=== PATIENT | female | born 1980 | race Caucasian/White ===

== ENCOUNTER → 2016-05-08 | Outpatient (CLI) | payer BC ==
--- NOTE | 2016-05-08 19:03 | US ---
EXAMINATION TYPE: US thyroid st tissue head/neck DATE OF EXAM: 05/08/2016 6:12 PM COMPARISON: 05/02/2015 CLINICAL HISTORY: R53.83 Other Malaise And Fatigue. Difficulty swallowing, known Santi's GLAND SIZE: Right Lobe: 5.1 x 1.9 x 1.2 cm Overall Parenchyma: heterogenous Left Lobe: 5.5 x 1.3 x 1.5 cm Overall Parenchyma: heterogeneous Isthmus Thickness: 0.4 cm NODULES RIGHT: # of nodules measured on right: 0 LEFT: # of nodules measured on left: 0 ISTHMUS: # of nodules measured in the isthmus: 0 TECHNOLOGIST IMPRESSION: Bilateral neck scanned, no abnormal lymphadenopathy noted. IMPRESSION: Normal thyroid sonogram. No discrete mass seen. No adverse change compared to old exam.
== END | disposition home or self-care (01) ==
LOC: RADUSMAIN 17:53
PROVIDERS: ATTEND Obstetrics & Gynecology
DX: E06.3 Autoimmune thyroiditis (principal); E13.10 Other specified diabetes mellitus with ketoacidosis without coma; R53.83 Other fatigue
CPT/HCPCS: 76536

== ENCOUNTER → 2016-06-11 | Outpatient (CLI) | payer BC | END | disposition home or self-care (01) | LOC: LABWHC1 08:06 | PROVIDERS: ATTEND Clinical Nurse Specialist Women's Health | DX: E06.3 Autoimmune thyroiditis (principal); E03.9 Hypothyroidism, unspecified | CPT/HCPCS: 36415; 84439; 84443; 84481; 86376 ==

== ENCOUNTER → 2016-07-17 | Outpatient (CLI) | payer BC | END | disposition home or self-care (01) | LOC: LABWHC1 08:08 | PROVIDERS: ATTEND Obstetrics & Gynecology | DX: E03.9 Hypothyroidism, unspecified (principal); E06.3 Autoimmune thyroiditis | CPT/HCPCS: 36415; 84439; 84481 ==

== ENCOUNTER 2016-11-25 12:24 | Inpatient (IN) | payer BC ==
[2016-11-28 07:11] VITALS: BMI 31.7
[2016-11-28] MEDS ORDERED: OXYTOCIN 10 UNIT/ML 1 ML VIAL IM PRN (07:16)
[2016-11-28] MEDS ORDERED: METHYLERGONOVINE 0.2 MG/ML 1 ML AMP IM PRN (07:16)
[2016-11-28] MEDS ORDERED: LIDOCAINE 1% (PF) 10 MG/ML (30 ML SDV) SQ PRN (07:16)
[2016-11-28] MEDS ORDERED: PENICILLIN G POTASSIUM (BULK) 5,000,000 UNIT in DEXTROSE 5% IN WATER 100 ML IV STA ×2 (07:16)
[2016-11-28] MEDS ORDERED: TERBUTALINE 1 MG/ML VIAL SQ PRN (07:16)
[2016-11-28] MEDS ORDERED: CARBOPROST TROMETHAMINE 250 MCG/ML 1 ML AMP IM PRN (07:16)
[2016-11-28 07:24] LABS: Basophils % (A) 0 %; CHCM 33.4; Eosinophils # (A) 0.1 k/uL (0-0.7); Eosinophils % (A) 1 %; HCT 40.8 % (34.0-46.0); HDW 2.95; HGB 13.9 gm/dL (11.4-16.0); Luc # (Auto) 0.19; Luc % (Auto) 2; Lymphocytes % (A) 21 %; MCH 30.8 pg (25.0-35.0); MCHC 34.2 g/dL (31.0-37.0); MCV 90.3 fL (80.0-100.0); Mean Platelet Volume 9.2; Monocytes # (A) 0.5 k/uL (0-1.0); Monocytes % (A) 5 %; Neutrophils # (A) 6.7 k/uL (1.3-7.7); Neutrophils % (A) 71 %; RBC 4.52 m/uL (3.80-5.40); RDW 14.2 % (11.5-15.5); WBC 9.5 k/uL (3.8-10.6); WBC (Perox) 9.38
[2016-11-28] MEDS: LACTATED RINGERS 1,000 ML IV SCH ×3 (07:25→13:12)
[2016-11-28] MEDS ORDERED: OXYTOCIN 20 UNITS/1000 ML NS 1,000 ML IV SCH ×2 (07:30→14:30)
[2016-11-28] MEDS ORDERED: BUTORPHANOL 1 MG/ML 1 ML VIAL IV PRN (08:28)
--- NOTE | 2016-11-28 08:34 | P.HPOB ---
History of Present Illness H&P Date: 11/28/16 Chief Complaint: 40-3/7 weeks, induction of labor The patient is a 36-year-old 2 para 1001 admitted at 40-3/7 weeks as established by last menstrual period and confirmed by second trimester ultrasound. She is admitted for postdates induction of labor with all signs reassuring. Her has been entirely uncomplicated. She does have a history of thyroid disease which is been stable throughout the . She additionally falls into the category of advanced maternal age and declined testing. And she was most recently found to be group B strep positive. Obstetrical history: 2 para 1001 with 1 term vaginal delivery without complications. Current statistics are listed in history of present illness. EDC of 11/25/2016 was established by last menstrual period and confirmed by 19 week ultrasound. Laboratory workup done traits of blood type of AB+ with a negative antibody screen. The remainder of the laboratory workup was within normal limits though her urine culture demonstrated group B strep. One hour Glucola was initially elevated but followed by a normal three-hour glucose tolerance test. Group B strep is presumptively positive secondary to positive urine culture. Gynecologic history: Unremarkable with no history of any infections to include STDs. Review of Systems Review of systems is confined to history of present illness. Past Medical History Past Medical History: Asthma, GERD/Reflux Additional Past Medical History / Comment(s): RADHA History of Any Multi-Drug Resistant Organisms: None Reported Past Surgical History: Orthopedic Surgery Additional Past Surgical History / Comment(s): Knee surgery; Colonscopy-IBS Past Anesthesia/Blood Transfusion Reactions: No Reported Reaction Past Psychological History: No Psychological Hx Reported Smoking Status: Never smoker Past Alcohol Use History: None Reported Past Drug Use History: None Reported - Past Family History Mother Family Medical History: No Reported History Medications and Allergies Home Medications Medication Instructions Recorded Confirmed Type Lansoprazole [Prevacid] 30 mg PO DAILY 03/15/15 11/28/16 History Thyroid,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] 1 tab PO TID 11/28/16 11/28/16 History Allergies Allergy/AdvReac Type Severity Reaction Status Date / Time acetaminophen AdvReac Nausea & Verified 11/28/16 07:03 [From Darvocet-N] Vomiting promethazine HCl AdvReac Nausea & Verified 11/28/16 07:03 [From Phenergan] Vomiting propoxyphene napsylate AdvReac Nausea & Verified 11/28/16 07:03 [From Darvocet-N] Vomiting Exam - Vital Signs Vital signs: Vital Signs Temp Pulse Resp BP Pulse Ox 11/28/16 06:39 96.1 F L 105 H 17 124/76 97 Intake and Output 11/27/16 11/28/16 11/28/16 22:59 06:59 14:59 Other: Weight 83.915 kg 83.915 kg Patient Weight 11/29/16 06:59 Weight 83.915 kg In general, this is a well-developed, well-nourished white female in no acute distress. Her heart has a regular rhythm and rate without murmur. Her lungs are clear to auscultation bilaterally in all south. Her abdomen is gravid, nondistended, has normal active bowel sounds, is soft, nontender, and without any palpable masses aside from uterine fundus. Her extremities are without any cyanosis, clubbing, or significant edema and are nontender to palpation bilaterally. Digital cervical exam demonstrates her cervix to be 2-3 cm dilated , approximately 50% effaced, the vertex in presentation at -2-3 station. Artificial rupture of membranes is carried out demonstrating a significant amount of lightly meconium-stained fluid. Results Result Diagrams: 11/28/16 06:45 Assessment and Plan (1) Post-dates Status: Acute (2) Group B streptococcal infection in Status: Acute Plan: The patient is admitted for induction of labor. Pitocin augmentation has been started and she has undergone artificial rupture of membranes. She will continue to have close maternal and surveillance and expectant management will be practiced. She has had antibiotic prophylaxis started for group B strep colonization. She is a good candidate for either IV or epidural analgesia , whichever she may choose.
[2016-11-28] MEDS ORDERED: fentaNYL (PF) 50 MCG/ML 5 ML AMP ONE (11:18)
[2016-11-28] MEDS ORDERED: SODIUM CHLORIDE 0.9% 100 ML BAG ONE (11:18)
[2016-11-28] MEDS ORDERED: BUPIVACAINE (PF) 0.25% 30 ML VIAL ONE (11:18)
[2016-11-28] MEDS ORDERED: PENICILLIN G POTASSIUM (BULK) 2,500,000 UNIT in DEXTROSE 5% IN WATER 100 ML IV SCH ×2 (12:00)
[2016-11-28] MEDS ORDERED: SIMETHICONE 80 MG CHEWABLE PO PRN (14:18)
[2016-11-28] MEDS ORDERED: diphenhydrAMINE 50 MG/ML 1 ML VIAL IVP PRN ×2 (14:18)
[2016-11-28] MEDS ORDERED: diphenhydrAMINE 50 MG CAP PO PRN (14:18)
[2016-11-28] MEDS ORDERED: Acetaminophen-Codeine 300-30mg TAB PO PRN ×2 (14:18)
[2016-11-28] MEDS ORDERED: ZOLPIDEM 5 MG TAB PO PRN (14:18)
[2016-11-28] MEDS ORDERED: ACETAMINOPHEN TAB 325 MG TAB PO PRN (14:18)
[2016-11-28] MEDS ORDERED: LANOLIN CREAM 5 GM TUBE TOPICAL PRN (14:18)
[2016-11-28] MEDS ORDERED: IBUPROFEN 600 MG TAB PO PRN (14:18)
[2016-11-28] MEDS ORDERED: BENZOCAINE/MENTHOL SPRAY 1 GM/SPRAY AEROSOL TOPICAL PRN (14:18)
[2016-11-28] MEDS ORDERED: WITCH HAZEL 1 EACH MED..PAD TOPICAL PRN (14:18)
[2016-11-28] MEDS ORDERED: diphenhydrAMINE 25 MG CAP PO PRN (14:18)
[2016-11-28] MEDS ORDERED: HYDROCORTISONE 2.5% RECTAL CREAM 30 GM TUBE RECTAL PRN (14:18)
--- NOTE | 2016-11-28 14:22 | P.PROBDLV ---
Vaginal Delivery Note - . Vaginal Delivery Note: The patient is a 36-year-old 2 para 1001 admitted at 40-3/7 weeks by good dating parameters. She is admitted for postdates induction of labor with all signs reassuring. Her has been uncomplicated and group B strep status is positive. As result, antibody prophylaxis was started upon admission as well as Pitocin augmentation. She underwent artificial rupture of membranes demonstrating light meconium-stained fluid. As she approached the onset of the active phase of labor, she had an epidural catheter placed for analgesia. She made rapid progress through the active phase of labor and ultimately progressed to complete where after she pushed for approximately 15 minutes to a normal spontaneous vaginal delivery of a viable 8 lbs. 5 oz. baby girl with Apgars of 9 at 1 minute and 9 at 5 minutes delivered in the left occiput anterior position. There was a loose nuchal cord 1 which was reduced following delivery of the . The nose and mouth were thoroughly suctioned on the perineum and prior to delivery of the body. The placenta was delivered spontaneously, intact, and grossly normal with a grossly normal, centrally inserted three-vessel cord. A small second-degree midline perineal episiotomy had been created at the time of delivery and was noted to have not extended. It was repaired in standard fashion using 3-0 chromic catgut without difficulty. Estimated blood loss for the entire case is approximately 150 mL. There were no complications. All sponge, instrument, and needle counts were correct. Both mother and infant are resting comfortably in recovery.
[2016-11-28 15:26] VITALS: RESP 16
[2016-11-28] MEDS: SENNOSIDES-DOCUSATE SODIUM 1 EACH TAB PO SCH (21:27)
[2016-11-29 01:42] VITALS: TEMP 98.3
[2016-11-29] MEDS: SENNOSIDES-DOCUSATE SODIUM 1 EACH TAB PO SCH (08:11)
[2016-11-29 09:04] VITALS: BP 110/70; PULSE 78
--- NOTE | 2016-11-29 11:08 | P.DS ---
Providers Date of admission: 11/28/16 06:38 Expected date of discharge: 11/29/16 Attending physician: Selvin Love Primary care physician: Ciro Fleming - Discharge Diagnosis(es) (1) Post-dates Current Visit: Yes Status: Acute (2) Group B streptococcal infection in Current Visit: Yes Status: Acute (3) Normal spontaneous vaginal delivery Current Visit: Yes Status: Acute Hospital Course: The patient's a 36-year-old 2 para 1001 admitted at 40-3/7 weeks for postdates induction of labor. Her was uncomplicated though she was group B strep positive. She also fell into the category of advanced maternal age and declined testing. On labor and delivery, she had antibody prophylaxis started and underwent Pitocin augmentation. She underwent artificial rupture of membranes demonstrating meconium-stained fluid. She had an epidural catheter placed at the onset of the active phase of labor and then progressed to complete where after she pushed to a normal spontaneous vaginal delivery of a viable 8 lbs. 5 oz. baby girl with Apgars of 9 at 1 minute and 9 at 5 minutes. Her course was unremarkable with vital signs remaining stable and her temperature was afebrile throughout. She was deemed stable for discharge on day #1 and was discharged home to follow-up in the office in 6 weeks' time routinely. Discharge instructions included calling for any significantly increased bleeding or foul-smelling lochia, significantly increased fever abdominal pain, perineal complaints, breast complaints, or anything else that concerned her. She was additionally instructed to have nothing in the vagina for at least 6 weeks time to include intercourse. She understood her instructions and agrees to follow up as noted above. Discharge medications included continued vitamins as she has opted to breast-feed. She otherwise was to use [id number] analgesic pain medications. Maternal blood type is AB+ and rubella status is immune. Procedures: #1. Antibiotic prophylaxis #2. Pitocin augmentation #3. Artificial rupture of membranes #4. Epidural analgesia #5. Normal spontaneous vaginal delivery # 6. Second-degree midline episiotomy and repair Patient Condition at Discharge: Good Plan - Discharge Summary New Discharge Prescriptions: No Action Lansoprazole [Prevacid] 30 mg PO DAILY Thyroid,Pork [Diversity Intern Thyroid 120] 1 tab PO TID Discharge Medication List Lansoprazole [Prevacid] 30 mg PO DAILY 03/15/15 [History] Thyroid,Pork [Diversity Intern Thyroid 120] 1 tab PO TID 11/28/16 [History] Follow up Appointment(s)/Referral(s): Selvin Love MD [STAFF PHYSICIAN] - 6 Weeks Discharge Disposition: HOME SELF-CARE
== END 2016-11-29 16:40 | disposition home or self-care (01) | DRG 775 ==
LOC: 4FBP 11-28 06:38
PROVIDERS: ADMIT Obstetrics & Gynecology; ATTEND Obstetrics & Gynecology
PROC: 3E0R3CZ (ICD-10-PCS; principal; 2016-11-28)
PROC: 00HU33Z Insertion of Infusion Device into Spinal Canal, Percutaneous Approach (ICD-10-PCS; principal; 2016-11-28)
PROC: 10907ZC Drainage of Amniotic Fluid, Therapeutic from Products of Conception, Via Natural or Artificial Opening (ICD-10-PCS; principal; 2016-11-28)
PROC: 0W8NXZZ Division of Female Perineum, External Approach (ICD-10-PCS; principal; 2016-11-28)
PROC: 10E0XZZ Delivery of Products of Conception, External Approach (ICD-10-PCS; principal; 2016-11-28)
DX: O48.0 Post-term pregnancy (principal); E03.9 Hypothyroidism, unspecified; Z37.0 Single live birth; O99.824 Streptococcus B carrier state complicating childbirth; Z3A.40 40 weeks gestation of pregnancy; O99.284 Endocrine, nutritional and metabolic diseases complicating childbirth; O69.81X0 Labor and delivery complicated by cord around neck, without compression, not applicable or unspecified; O77.0 Labor and delivery complicated by meconium in amniotic fluid; K21.9 Gastro-esophageal reflux disease without esophagitis; O99.62 Diseases of the digestive system complicating childbirth
CPT/HCPCS: 85025; 88307

== ENCOUNTER → 2017-04-18 | Outpatient (CLI) | payer BC ==
[2017-04-18 10:04] LABS: T4, Free (Free Thyroxine) 0.52 ng/dL (0.78-2.19)
== END | disposition home or self-care (01) ==
LOC: LABWHC1 07:46
PROVIDERS: ATTEND Obstetrics & Gynecology
DX: E03.9 Hypothyroidism, unspecified (principal)
CPT/HCPCS: 36415; 84439; 84443; 84481; 86376

== ENCOUNTER → 2017-06-13 | Outpatient (CLI) | payer BC ==
--- NOTE | 2017-06-13 10:48 | US ---
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 On thyroid meds. No hx of thyroid biopsy GLAND SIZE: Right Lobe: 4.9 x 1.8 x 1.3 cm Overall Parenchyma: heterogenous Left Lobe: 4.8 x 1.5 x 1.1 cm Overall Parenchyma: heterogeneous Isthmus Thickness: 0.2 cm NODULES RIGHT: # of nodules measured on right: 0 LEFT: # of nodules measured on left: 0 ISTHMUS: # of nodules measured in the isthmus: 0 Bilateral neck scanned, no evidence of lymphadenopathy. Bilateral thyroid lobes appears heterogenous and hypervascular. No distinct nodules are seen. IMPRESSION: Nonspecific heterogeneity and hypervascularity. Correlate with thyroid function testing and clinical exam findings.
== END | disposition home or self-care (01) ==
LOC: RADUSWWP 10:16
PROVIDERS: ATTEND Obstetrics & Gynecology
DX: E06.3 Autoimmune thyroiditis (principal)
CPT/HCPCS: 76536

== ENCOUNTER → 2017-06-18 | Outpatient (CLI) | payer BC ==
[2017-06-18 09:18] LABS: T4, Free (Free Thyroxine) 0.46 ng/dL (0.78-2.19)
== END | disposition home or self-care (01) ==
LOC: LABWHC1 07:56
PROVIDERS: ATTEND Obstetrics & Gynecology
DX: E03.9 Hypothyroidism, unspecified (principal); E06.3 Autoimmune thyroiditis
CPT/HCPCS: 36415; 84439; 84443; 84481

== ENCOUNTER → 2017-08-14 | Outpatient (CLI) | payer BC ==
[2017-08-14 10:47] LABS: T4, Free (Free Thyroxine) 0.7 ng/dL (0.78-2.19)
== END | disposition home or self-care (01) ==
LOC: LABWHC1 07:56
PROVIDERS: ATTEND Clinical Nurse Specialist Women's Health
DX: E06.3 Autoimmune thyroiditis (principal)
CPT/HCPCS: 36415; 84439; 84481; 86376

== ENCOUNTER → 2017-10-28 | Outpatient (CLI) | payer BC ==
[2017-10-28 09:12] LABS: T4, Free (Free Thyroxine) 0.77 ng/dL (0.78-2.19)
== END | disposition home or self-care (01) ==
LOC: LABWHC1 07:45
PROVIDERS: ATTEND Clinical Nurse Specialist Women's Health
DX: E06.3 Autoimmune thyroiditis (principal)
CPT/HCPCS: 36415; 84439; 84443; 84481

== ENCOUNTER → 2017-10-30 | Outpatient (CLI) | payer BC ==
[2017-10-30 09:04] LABS: HCG,Quantitative Serum <2.4 mIU/mL; T4, Free (Free Thyroxine) 0.68 ng/dL (0.78-2.19)
[2017-10-30 19:22] LABS: Iron Saturation 18.4 (12.00-45.00)
[2017-10-30 19:58] LABS: Thyroid Peroxidase Antibodies 799.2 U/mL (0.0-60.0)
[2017-10-30 21:38] LABS: Sex Horm Bind Glob 152.8 nmol/L (10.84-180.00)
== END | disposition home or self-care (01) ==
LOC: LABWHC1 07:43
PROVIDERS: ATTEND Clinical Nurse Specialist Women's Health
DX: R53.83 Other fatigue (principal); Z86.39 Personal history of other endocrine, nutritional and metabolic disease
CPT/HCPCS: 36415; 82728; 83540; 83550; 84270; 84439; 84481; 84482; 84702; 86376

== ENCOUNTER → 2018-03-02 | Outpatient (CLI) | payer BC ==
[2018-03-02 16:05] LABS: T4, Free (Free Thyroxine) 0.8 ng/dL (0.80-1.80)
[2018-03-02 16:16] LABS: Iron Saturation 27.16 (12.00-45.00)
== END ==
LOC: LABWHC1 09:23
PROVIDERS: ATTEND Clinical Nurse Specialist Women's Health
DX: D64.9 Anemia, unspecified (principal); E06.3 Autoimmune thyroiditis
CPT/HCPCS: 36415; 82728; 83540; 83550; 84270; 84439; 84481; 84482

== ENCOUNTER → 2018-04-24 | Outpatient (CLI) | payer BC ==
[2018-04-24 17:54] LABS: Iron Saturation 13.15 (12.00-45.00); T4, Free (Free Thyroxine) 0.7 ng/dL (0.80-1.80); Thyroid Peroxidase Antibodies 230.5 U/mL (0.0-60.0)
== END ==
LOC: LABWHC1 07:55
PROVIDERS: ATTEND Clinical Nurse Specialist Women's Health
DX: E03.9 Hypothyroidism, unspecified (principal); E06.3 Autoimmune thyroiditis; Z86.2 Personal history of diseases of the blood and blood-forming organs and certain disorders involving the immune mechanism
CPT/HCPCS: 36415; 83540; 83550; 84439; 84481; 84482; 86376

== ENCOUNTER → 2018-06-22 | Outpatient (CLI) | payer BC ==
--- NOTE | 2018-06-22 12:03 | US ---
EXAMINATION TYPE: US thyroid st tissue head/neck DATE OF EXAM: 06/22/2018 COMPARISON: US 06/13/2017 CLINICAL HISTORY: E06.3 Autoimmune thyroiditis. Follow up to previous, patient taking thyroid medicat ion GLAND SIZE: Right Lobe: 5.2 x 1.7 x 1.7 cm Overall Parenchyma: heterogenous Left Lobe: 5.5 x1.5 x 1.4 cm Overall Parenchyma: heterogeneous Isthmus Thickness: 0.4 cm NODULES RIGHT: # of nodules measured on right: 0 LEFT: # of nodules measured on left: 0 ISTHMUS: # of nodules measured in the isthmus:0 Bilateral enlarged, heterogeneous, and hypervascular thyroid glands. Bilateral neck scanned, no evidence of lymphadenopathy. IMPRESSION: 1. Normal thyroid ultrasound
== END | disposition home or self-care (01) ==
LOC: RADUSWWP 08:16
PROVIDERS: ATTEND Obstetrics & Gynecology
DX: E06.3 Autoimmune thyroiditis (principal)
CPT/HCPCS: 76536

== ENCOUNTER → 2018-06-22 | Outpatient (CLI) | payer BC ==
[2018-06-22 18:12] LABS: Iron Saturation 9.04 (12.00-45.00)
== END | disposition home or self-care (01) ==
LOC: LABWHC1 07:56
PROVIDERS: ATTEND Clinical Nurse Specialist Women's Health
DX: E03.9 Hypothyroidism, unspecified (principal); D64.9 Anemia, unspecified
CPT/HCPCS: 36415; 83540; 83550; 84439; 84481; 84482

== ENCOUNTER → 2018-08-21 | Outpatient (CLI) | payer BC ==
[2018-08-21 17:35] LABS: T4, Free (Free Thyroxine) 0.7 ng/dL (0.80-1.80)
[2018-08-21 18:19] LABS: Thyroid Peroxidase Antibodies 1672.2 U/mL (0.0-60.0)
== END | disposition home or self-care (01) ==
LOC: LABWHC1 07:40
PROVIDERS: ATTEND Clinical Nurse Specialist Women's Health
DX: D64.9 Anemia, unspecified (principal); E03.9 Hypothyroidism, unspecified
CPT/HCPCS: 36415; 83540; 84439; 84481; 84482; 86376

== ENCOUNTER → 2019-02-09 | Outpatient (CLI) | payer BC ==
[2019-02-09 15:46] LABS: % Iron Saturation 26.11 (12.00-45.00)
[2019-02-09 15:55] LABS: Ferritin 30.5 ng/mL (10.0-291.0)
[2019-02-09 16:11] LABS: T4, Free (Free Thyroxine) 0.6 ng/dL (0.80-1.80)
== END ==
LOC: LABWHC1 08:03
PROVIDERS: ATTEND Clinical Nurse Specialist Women's Health
DX: E06.3 Autoimmune thyroiditis (principal); D64.9 Anemia, unspecified
CPT/HCPCS: 36415; 82728; 83540; 83550; 84439; 84481; 84482; 86376

== ENCOUNTER → 2019-04-23 | Outpatient (CLI) | payer BC ==
[2019-04-23 16:44] LABS: % Iron Saturation 22.06 (12.00-45.00)
[2019-04-23 16:59] LABS: T4, Free (Free Thyroxine) 0.8 ng/dL (0.80-1.80)
== END | disposition home or self-care (01) ==
LOC: LABWHC1 08:07
PROVIDERS: ATTEND Clinical Nurse Specialist Women's Health
DX: D64.9 Anemia, unspecified (principal); E03.9 Hypothyroidism, unspecified
CPT/HCPCS: 36415; 82728; 83540; 83550; 84439; 84481; 84482

== ENCOUNTER → 2019-10-15 | Outpatient (CLI) | payer BC ==
--- NOTE | 2019-10-15 10:05 | US ---
EXAMINATION TYPE: US thyroid st tissue head/neck DATE OF EXAM: 10/15/2019 COMPARISON: 06/22/2018 CLINICAL HISTORY: 39-year-old female E06.3 Santi's. TECHNIQUE: Multiple sonographic images of the thyroid gland are obtained. FINDINGS: GLAND SIZE: Right Lobe: 4.4 x 1.3 x 1.4 cm Left Lobe: 5.0 x 1.2 x 1.4 cm Isthmus Thickness: .2 cm The glandular parenchyma remains slightly heterogeneous. The hyperemia seen previously has improved. NODULES RIGHT: # of nodules measured on right: 0 LEFT: # of nodules measured on left: 0 ISTHMUS: # of nodules measured in the isthmus: 0 Bilateral neck scanned, no evidence of lymphadenopathy. IMPRESSION: 1. The thyroid gland parenchyma remains slightly heterogeneous. The hyperemia seen previously has imp roved. 2. No discrete nodule.
--- NOTE | 2019-10-18 09:49 | MM ---
Reason for exam: screening (asymptomatic). Last mammogram was performed 4 years and 2 months ago. History: Patient had first child at age 29. Taking hormonal contraceptives for 20 years. Physical Findings: A clinical breast exam by your physician is recommended on an annual basis and results should be correlated with mammographic findings. MG Screening Mammo w CAD Bilateral CC and MLO view(s) were taken. Prior study comparison: August 21, 2015, bilateral MG screening mammo w CAD. The breast tissue is extremely dense which could obscure a lesion on mammography. There is no discrete abnormality. No significant changes when compared with prior studies. ASSESSMENT: Negative, BI-RAD 1 RECOMMENDATION: Routine screening mammogram of both breasts in 1 year.
== END | disposition home or self-care (01) ==
LOC: RADMAMWWP 07:18
PROVIDERS: ATTEND Obstetrics & Gynecology
DX: E06.3 Autoimmune thyroiditis (principal); Z12.31 Encounter for screening mammogram for malignant neoplasm of breast; E07.89 Other specified disorders of thyroid
CPT/HCPCS: 76536; 77067

== ENCOUNTER → 2020-04-14 | Outpatient (CLI) | payer BC ==
[2020-04-14 13:51] LABS: HCT 44.4 % (37.2-46.3); HGB 14.3 g/dL (12.0-15.0); MCH 28.9 pg (27.0-32.0); MCHC 32.2 g/dL (32.0-37.0); MCV 89.7 fL (80.0-97.0); Mean Platelet Volume 11.4 fL (9.5-12.2); Platelet Count 283 X 10*3/uL (140-440); RBC 4.95 X 10*6/uL (4.10-5.20); RDW 12.2 % (11.5-14.5); WBC 6.36 X 10*3/uL (4.50-10.00)
[2020-04-14 14:08] LABS: % Iron Saturation 28.68 (12.00-45.00); Albumin 4.6 g/dL (3.80-4.90); Anion Gap 10.2 mmol/L (4.00-12.00); BUN/Creat Ratio 11.11 Ratio (12.00-20.00); Carbon Dioxide 26.8 mmol/L (21.6-31.8); Chol/HDL Ratio 2.79; Globulin 2.3 g/dL (1.6-3.3); LDL Cholesterol,Calculated 99.4 mg/dL (0.0-131.0); Non-African American GFR(CKD) 79.4 (60.0-200.0); Potassium 4.1 mmol/L (3.5-5.5); Total Bilirubin 0.4 mg/dL (0.2-1.2); Total Protein 6.9 g/dL (6.2-8.2); VLDL Calculation 20.6 mg/dL (5.00-40.00)
[2020-04-14 14:16] LABS: Ferritin 35.1 ng/mL (10.0-291.0)
[2020-04-14 18:02] LABS: T4, Free (Free Thyroxine) 0.8 ng/dL (0.80-1.80)
== END | disposition home or self-care (01) ==
LOC: LABWHC1 08:00
PROVIDERS: ATTEND Family Medicine
DX: Z00.00 Encounter for general adult medical examination without abnormal findings (principal); E06.3 Autoimmune thyroiditis; E64.9 Sequelae of unspecified nutritional deficiency
CPT/HCPCS: 36415; 80053; 80061; 82607; 82728; 82747; 83540; 83550; 84439; 84443; 84481; 85027

== ENCOUNTER → 2020-11-28 | Outpatient (CLI) | payer BC ==
--- NOTE | 2020-11-29 09:46 | MM ---
Reason for exam: screening (asymptomatic). Last mammogram was performed 1 year and 1 month ago. History: Patient had first child at age 29. Taking hormonal contraceptives for 20 years. Physical Findings: A clinical breast exam by your physician is recommended on an annual basis and results should be correlated with mammographic findings. MG Screening Mammo w CAD Bilateral CC and MLO view(s) were taken. Prior study comparison: October 15, 2019, bilateral MG screening mammo w CAD. August 21, 2015, bilateral MG screening mammo w CAD. The breast tissue is heterogeneously dense. This may lower the sensitivity of mammography. There is no discrete abnormality. No significant changes when compared with prior studies. ASSESSMENT: Negative, BI-RAD 1 RECOMMENDATION: Routine screening mammogram of both breasts in 1 year.
== END | disposition home or self-care (01) ==
LOC: RADMAMWWP 07:59
PROVIDERS: ATTEND Obstetrics & Gynecology
DX: Z12.31 Encounter for screening mammogram for malignant neoplasm of breast (principal)
CPT/HCPCS: 77067

== ENCOUNTER → 2021-04-19 | Outpatient (CLI) | payer BC ==
[2021-04-19 15:39] LABS: HCT 44.8 % (37.2-46.3); HGB 14.3 g/dL (12.0-15.0); MCH 28.6 pg (27.0-32.0); MCHC 31.9 g/dL (32.0-37.0); MCV 89.6 fL (80.0-97.0); Mean Platelet Volume 11.5 fL (9.5-12.2); NRBC Per 100 WBC 0 /100 WBCS (0.0-0.0); Platelet Count 264 X 10*3/uL (140-440); RDW 12.5 % (11.5-14.5); WBC 6.27 X 10*3/uL (4.50-10.00)
[2021-04-19 15:48] LABS: % Iron Saturation 31.11 (12.00-45.00); Chol/HDL Ratio 3.11 Ratio; Iron 115 ug/dL (50-170); LDL Cholesterol,Calculated 96.6 mg/dL (0.0-131.0); Total Iron Binding Capacity 370 ug/dL (228-460); VLDL Calculation 17.34 mg/dL (5.00-40.00)
[2021-04-19 15:49] LABS: ALT 7 U/L (8-44); AST 16 U/L (13-35); African American GFR (CKD) 116.2 (60.0-200.0); Albumin 3.9 g/dL (3.8-4.9); Albumin/Globulin Ratio 1.29 (1.60-3.17); Alkaline Phosphatase 79 U/L (41-126); BUN/Creat Ratio 12.01 Ratio (12.00-20.00); Blood Urea Nitrogen 8.9 mg/dL (9.0-27.0); Calcium 9.7 mg/dL (8.7-10.3); Carbon Dioxide 24.3 mmol/L (20.0-27.5); Chloride 105 mmol/L (96-109); Ferritin 62.5 ng/mL (10.0-291.0); Globulin 3.1 g/dL (1.6-3.3); Glucose 89 mg/dL (70-110); Non-African American GFR(CKD) 100.3 (60.0-200.0); Sodium 140 mmol/L (135-145)
== END | disposition home or self-care (01) ==
LOC: LABWHC1 08:13
PROVIDERS: ATTEND Family Medicine
DX: Z00.00 Encounter for general adult medical examination without abnormal findings (principal); E06.3 Autoimmune thyroiditis; D64.9 Anemia, unspecified
CPT/HCPCS: 36415; 80053; 80061; 82607; 82728; 82747; 83540; 83550; 84439; 84443; 84481; 85027

== ENCOUNTER → 2021-05-01 | Outpatient (CLI) | payer BC ==
--- NOTE | 2021-05-01 14:20 | US ---
EXAMINATION TYPE: US transvaginal DATE OF EXAM: 05/01/2021 COMPARISON: NONE CLINICAL HISTORY: R10.2 PELVIC PAIN. TECHNIQUE: Transvaginal (TV). Date of LMP: 04-20-21 EXAM MEASUREMENTS: Uterus: 6.9 x 3.4 x 4.2 cm Endometrial Stripe: 0.4 cm Right Ovary: 4.2 x 2.9 x 2.4 cm Left Ovary: 2.3 x 1.1 x 1.2 cm 1. Uterus: Anteverted wnl 2. Endometrium: wnl 3. Right Ovary: cyst measuring 3.5 x 2.3 x 2.5cm 4. Left Ovary: wnl 5. Bilateral Adnexa: wnl 6. Posterior cul-de-sac: wnl Heterogeneous uterus. Endometrial stripe within normal limits. No free fluid. Asymmetric enlargement of the right ovary due to oval 3.5 cm thin-walled cyst that has peripheral cur vilinear septa. Inner margin is smooth without central vascularity. IMPRESSION: There is 3.5 cm nonsimple cystic lesion right ovary. O-Rads 3 low risk. Consider MRI foll ow-up to further evaluate.
== END | disposition home or self-care (01) ==
LOC: RADUSWWP 13:36
PROVIDERS: ATTEND Obstetrics & Gynecology
DX: N83.201 Unspecified ovarian cyst, right side (principal)
CPT/HCPCS: 76830

== ENCOUNTER → 2021-06-20 | Outpatient (CLI) | payer BC ==
[2021-06-20 10:55] LABS: T4, Free (Free Thyroxine) 1.01 ng/dL (0.800-1.800)
== END | disposition home or self-care (01) ==
LOC: LABWHC1 07:52
PROVIDERS: ATTEND Family Medicine
DX: E06.3 Autoimmune thyroiditis (principal)
CPT/HCPCS: 36415; 84439; 84443; 84481

== ENCOUNTER → 2021-12-05 | Outpatient (CLI) | payer BC ==
--- NOTE | 2021-12-06 10:07 | MM ---
Reason for Exam: Screening (asymptomatic). Last mammogram was performed 1 year(s) and 1 month(s) ago. Patient History: Menarche at age 13. First Full-Term at age 29. Late child-bearing (after 30). Currently using Hormonal Contraceptives, for 20 years. Risk Values: Nora 5 year model risk: 0.9%. NCI Lifetime model risk: 12.1%. Prior Study Comparison: 08/21/2015 Bilateral Screening Mammogram, [facility]. 10/15/2019 Bilateral Screening Mammogram, [facility]. 11/28/2020 Bilateral Screening Mammogram, [facility]. Tissue Density: The breast tissue is heterogeneously dense. This may lower the sensitivity of mammography. Findings: Analyzed By CAD. There is no suspicious group of microcalcifications or new suspicious mass in either breast. Overall Assessment: Negative, BI-RAD 1 Management: Screening Mammogram of both breasts in 1 year. Some consider bilateral breast ultrasound surveillance in patients with background dense tissue. A clinical breast exam by your physician is recommended on an annual basis and results should be correlated with mammographic findings. Electronically signed and approved by: Elfego Carver M.D.
== END | disposition home or self-care (01) ==
LOC: RADMAMWWP 07:51
PROVIDERS: ATTEND Obstetrics & Gynecology
DX: Z12.31 Encounter for screening mammogram for malignant neoplasm of breast (principal)
CPT/HCPCS: 77063; 77067

== ENCOUNTER → 2022-12-06 | Outpatient (CLI) | payer BC ==
--- NOTE | 2022-12-09 08:16 | MM ---
Reason for Exam: Screening (asymptomatic). Last screening mammogram was performed 12 month(s) ago. Patient History: Menarche at age 13. First Full-Term at age 29. Late child-bearing (after 30). Premenopausal. Patient has history of breast feeding. Currently using Hormonal Contraceptives, starting at age 22. Paternal aunt had ovarian cancer at or over age 50. Paternal aunt had ovarian cancer at or over age 50. Last menstrual period: 11/29/2022 Risk Values: Nora 5 year model risk: 1.0%. NCI Lifetime model risk: 12.0%. Prior Study Comparison: 08/21/2015 Bilateral Screening Mammogram, [facility]. 10/15/2019 Bilateral Screening Mammogram, [facility]. 11/28/2020 Bilateral Screening Mammogram, [facility]. 12/05/2021 Bilateral MG 3D screening mammo w/cad, [facility]. Tissue Density: The breast tissue is heterogeneously dense. This may lower the sensitivity of mammography. Findings: Analyzed By CAD. There is no suspicious group of microcalcifications or new suspicious mass. Overall Assessment: Negative, BI-RAD 1 Management: Screening Mammogram of both breasts in [address] [facility] will attempt to contact patient to return for supplemental views and ultrasound if indicated. Patient should continue monthly self-breast exams. A clinical breast exam by your physician is recommended on an annual basis. This exam should not preclude additional follow-up of suspicious palpable abnormalities. Note on Nora scores and lifetime risk: 1. A Nora score greater than 3% is considered moderate risk. If this is the case, consider specialist referral to assess eligibility for a risk reducing agent. 2. If overall lifetime risk for the development of breast cancer is 20% or higher, the patient may qualify for future screening with alternating mammogram and breast MRI. Electronically signed and approved by: Lobito Dailey DO
== END | disposition home or self-care (01) ==
LOC: RADMAMWWP 07:53
PROVIDERS: ATTEND Obstetrics & Gynecology
DX: Z12.31 Encounter for screening mammogram for malignant neoplasm of breast (principal); Z80.41 Family history of malignant neoplasm of ovary
CPT/HCPCS: 77063; 77067

== ENCOUNTER → 2023-05-14 | Outpatient (CLI) | payer BC ==
[2023-05-14 11:14] LABS: HCT 41.8 % (37.2-46.3); HGB 13.8 g/dL (12.0-15.0); MCH 29.4 pg (27.0-32.0); MCV 88.9 FL (80.0-97.0); NRBC Per 100 WBC 0 X 10*3/uL (0.00-0.01); Platelet Count 254 X 10*3/uL (140-440); RDW 12.3 % (11.5-14.5); WBC 6.48 X 10*3/uL (4.50-10.00)
[2023-05-14 11:32] LABS: ALT 10 U/L (8-44); AST 17 U/L (13-35); Albumin 4.1 g/dL (3.8-4.9); Albumin/Globulin Ratio 1.41 Ratio (1.60-3.17); Alkaline Phosphatase 73 U/L (41-126); BUN/Creat Ratio 10.78 Ratio (12.00-20.00); Blood Urea Nitrogen 9.7 mg/dL (9.0-27.0); Calcium 9.7 mg/dL (8.7-10.3); Carbon Dioxide 24.8 mmol/L (21.6-31.8); Chloride 105 mmol/L (96-109); Globulin 2.9 g/dL (1.6-3.3); Glucose 92 mg/dL (70-110); Potassium 4.1 mmol/L (3.5-5.5); Sodium 140 mmol/L (135-145); T4, Free (Free Thyroxine) 0.93 ng/dL (0.80-1.80); Total Bilirubin 0.3 mg/dL (0.3-1.2)
== END | disposition home or self-care (01) ==
LOC: LABWHC1 07:38
PROVIDERS: ATTEND Family Medicine
DX: Z00.00 Encounter for general adult medical examination without abnormal findings (principal); E06.3 Autoimmune thyroiditis
CPT/HCPCS: 36415; 80053; 80061; 84439; 84443; 84481; 85027

== ENCOUNTER → 2023-06-05 | Outpatient (CLI) | payer BC ==
--- NOTE | 2023-06-06 08:03 | US ---
EXAMINATION TYPE: US thyroid st tissue head/neck DATE OF EXAM: 06/05/2023 COMPARISON: CLINICAL INDICATION: Female, 42 years old with history of E04.9 NONTOXIC GOITER, UNSPECIFIED; Abnorma l labs. On thyroid meds. GLAND SIZE: Right Lobe: 3.8 x 1.3 x 1.3 cm Overall Parenchyma: homogeneous Left Lobe: 4.2 x 1.1 x 1.0 cm Overall Parenchyma: homogeneous Isthmus Thickness: 0.2 cm NODULES RIGHT: # of nodules measured on right: 0 LEFT: # of nodules measured on left: 0 ISTHMUS: # of nodules measured in the isthmus: 0 Bilateral neck scanned, no evidence of lymphadenopathy. IMPRESSION: Normal study 2017 ACR TI-RADS LEVEL: *Highest TI-RADS level nodule reported
== END | disposition home or self-care (01) ==
LOC: RADUSWWP 15:20
PROVIDERS: ATTEND Family Medicine
DX: E04.9 Nontoxic goiter, unspecified (principal); R79.9 Abnormal finding of blood chemistry, unspecified
CPT/HCPCS: 76536

== ENCOUNTER → 2023-12-08 | Outpatient (CLI) | payer BC ==
--- NOTE | 2023-12-08 19:06 | MM ---
Reason for Exam: Screening (asymptomatic). Last screening mammogram was performed 12 month(s) ago. Patient History: Menarche at age 13. First Full-Term at age 29. Late child-bearing (after 30). Premenopausal. Patient has history of breast feeding. Currently using Hormonal Contraceptives, starting at age 22. Paternal aunt had ovarian cancer at or over age 50. Paternal aunt had ovarian cancer at or over age 50. Risk Values: Nora 5 year model risk: 1.0%. NCI Lifetime model risk: 11.9%. Prior Study Comparison: 11/28/2020 Bilateral Screening Mammogram, [facility]. 12/05/2021 Bilateral MG 3D screening mammo w/cad, [facility]. 12/06/2022 Bilateral MG 3D screening mammo w/cad, [facility]. Tissue Density: The breasts are heterogeneously dense, which may obscure small masses. Findings: Analyzed By CAD. There is no suspicious group of microcalcifications or new suspicious mass in either breast. Overall Assessment: Negative, BI-RAD 1 Management: Screening Mammogram of both breasts in 1 year. . Patient should continue monthly self-breast exams. A clinical breast exam by your physician is recommended on an annual basis. This exam should not preclude additional follow-up of suspicious palpable abnormalities. Note on Nora scores and lifetime risk: 1. A Nora score greater than 3% is considered moderate risk. If this is the case, consider specialist referral to assess eligibility for a risk reducing agent. 2. If overall lifetime risk for the development of breast cancer is 20% or higher, the patient may qualify for future screening with alternating mammogram and breast MRI. [facility], , 12/08/2023 7:03 PM. Electronically signed and approved by: Gus Hathaway M.D. Radiologist
== END | disposition home or self-care (01) ==
LOC: RADMAMWWP 07:46
PROVIDERS: ATTEND Obstetrics & Gynecology
DX: Z12.31 Encounter for screening mammogram for malignant neoplasm of breast
CPT/HCPCS: 77063; 77067

== ENCOUNTER → 2024-05-18 | Outpatient (CLI) | payer BC ==
[2024-05-18 11:08] LABS: HCT 42.9 % (37.2-46.3); MCH 29.5 pg (27.0-32.0); MCHC 32.6 g/dL (32.0-37.0); MCV 90.5 FL (80.0-97.0); Mean Platelet Volume 11.4 FL (9.5-12.2); NRBC Per 100 WBC 0 X 10*3/uL (0.00-0.01); Platelet Count 274 X 10*3/uL (140-440); RBC 4.74 X 10*6/uL (4.10-5.20); RDW 12.8 % (11.5-14.5)
[2024-05-18 15:49] LABS: ALT 14 U/L (8-44); AST 15 U/L (13-35); Albumin/Globulin Ratio 1.43 Ratio (1.60-3.17); Alkaline Phosphatase 97 U/L (41-126); BUN/Creat Ratio 12.33 Ratio (12.00-20.00); Blood Urea Nitrogen 11.1 mg/dL (9.0-27.0); Calcium 10.1 mg/dL (8.7-10.3); Carbon Dioxide 26.2 mmol/L (21.6-31.8); Chloride 107 mmol/L (96-109); Chol/HDL Ratio 3.24 Ratio; Globulin 2.8 g/dL (1.6-3.3); Glucose 95 mg/dL (70-110); LDL Cholesterol,Calculated 133.6 mg/dL (0.0-131.0); Potassium 4.3 mmol/L (3.5-5.5); Sodium 143 mmol/L (135-145); T4, Free (Free Thyroxine) 0.95 ng/dL (0.80-1.80); Total Bilirubin 0.3 mg/dL (0.3-1.2); Total Protein 6.8 g/dL (6.2-8.2)
== END | disposition home or self-care (01) ==
LOC: LABWHC1 07:40
PROVIDERS: ATTEND Family Medicine
DX: Z00.00 Encounter for general adult medical examination without abnormal findings (principal); E06.3 Autoimmune thyroiditis
CPT/HCPCS: 36415; 80053; 80061; 84439; 84443; 84481; 85027